=== PATIENT | female | born 1990 | race Caucasian/White ===

== ENCOUNTER 2017-07-27 09:01 | Emergency (ER) | payer OTHER ==
[2017-07-27 10:32] VITALS: BP 114/76
--- NOTE | 2017-07-27 10:40 | UC ---
UC General HPI - HPI Summary HPI Summary: pt is c/o headache, sore throat, runny nose, cough and chest congest for 2 days. No fever or bodyaches. Is with due date of 08/28/17 thus wants to ensure not flu. - History of Current Complaint Chief Complaint: UCGeneralIllness Stated Complaint: JAVIER,ST Time Seen by Provider: 07/27/17 10:29 Hx Obtained From: Patient Hx Last Menstrual Period: 07/16/14 Onset/Duration: Gradual Onset Onset Severity: Mild Current Severity: Mild Pain Intensity: 0 Associated Signs & Symptoms: Positive: Cough, Headache, Other - no vaginal fluid or bleeding. + baby movement.. Negative: Chest Pain, Dysuria, SOB - Allergy/Home Medications Allergies/Adverse Reactions: Allergies Allergy/AdvReac Type Severity Reaction Status Date / Time No Known Allergies Allergy Verified 07/27/17 10:29 Home Medications: Home Medications Acetaminophen TAB* [Tylenol TAB*] 325 mg PO Q4H PRN 07/27/17 [History Confirmed 07/27/17] PMH/Surg Hx/FS Hx/Imm Hx - Additional Past Medical History Additional PMH: Current Previously Healthy: Yes - Surgical History Surgical History: Yes Surgery Procedure, Year, and Place: T&A young child - Family History Known Family History: Positive: None - Social History Occupation: Employed Full-time Alcohol Use: None Substance Use Type: None Smoking Status (MU): Never Smoked Tobacco Type: Cigarettes Amount Used/How Often: couple of cigs per month - Immunization History Most Recent Influenza Vaccination: 2013 Vaccination Up to Date: Yes Review of Systems Constitutional: Negative Skin: Negative Eyes: Negative ENT: Sore Throat, Nasal Discharge Respiratory: Cough Cardiovascular: Negative Gastrointestinal: Negative Genitourinary: Negative Motor: Negative Neurovascular: Negative Musculoskeletal: Negative Neurological: Headache Psychological: Negative Is Patient Immunocompromised?: No All Other Systems Reviewed And Are Negative: Yes Physical Exam Triage Information Reviewed: Yes Appearance: Well-Appearing Vital Signs: Initial Vital Signs Temp 98.3 F 07/27/17 10:26 Pulse 75 07/27/17 10:26 Resp 16 07/27/17 10:26 BP 114/76 07/27/17 10:26 Pulse Ox 98 07/27/17 10:26 Vital Signs Reviewed: Yes Eye Exam: Normal ENT: Positive: Pharynx normal, Nasal congestion, TMs normal. Negative: Sinus tenderness Neck: Positive: Supple, Nontender, Tenderness @ - pertonsilar nodes slightly but only ? sligthly enlarged Respiratory: Positive: Lungs clear, Normal breath sounds, No respiratory distress Cardiovascular: Positive: RRR, No Murmur Abdomen Description: Positive: Nontender, Soft, Other: - Gravid uterus Bowel Sounds: Positive: Present Musculoskeletal: Positive: Other: - scoliosis noted(hx of) Neurological: Positive: Alert Psychological: Positive: Age Appropriate Behavior Skin Exam: Normal Diagnostics - Laboratory Diagnostic Studies Completed/Ordered: rapid strep and flu are both negative Course/Dx - Course Course Of Treatment: non toxic, rapid strep and flu are both negative. exam c/w viral illness thus tx supportive and no antibiotic or antiviral for flu. pt has f/u with ob in 5 days but will go sooner if needed. - Differential Dx - Multi-Symptom Provider Diagnoses: URI, cough Discharge - Discharge Plan Condition: Stable Disposition: HOME Patient Education Materials: Upper Respiratory Infection (ED), Acute Cough (ED) Referrals: Flaco Gamino MD [Medical Doctor] - 5 Days
== END 2017-07-27 11:13 | disposition home or self-care (01) ==
LOC: UCCORT 09:01
DX: O26.893 Other specified pregnancy related conditions, third trimester (principal); Z3A.00 Weeks of gestation of pregnancy not specified; J06.9 Acute upper respiratory infection, unspecified; R05 Cough; O99.333 Smoking (tobacco) complicating pregnancy, third trimester; F17.210 Nicotine dependence, cigarettes, uncomplicated
CPT/HCPCS: 87502; 87651; 99211; G0463

== ENCOUNTER 2018-08-05 07:23 | Emergency (ER) | payer OTHER ==
[2018-08-05 07:35] VITALS: BP 118/84
[2018-08-05] MEDS ORDERED: Ketorolac INJ* 60 MG/2 ML VIAL IM ONE (08:20)
--- NOTE | 2018-08-05 08:21 | UC ---
Back Pain HPI - HPI Summary HPI Summary: SHAMPOOED ROSARIO YESTERDAY. TODAY, WOKE UP WITH PAIN IN LOW BACK THAT SOMETIMES "SHOOTS A SHARP PAIN INTO L LEG" STATES "I'VE HAD THIS A MILLION TIMES BEFORE". NO SELF TX - History of Current Complaint Chief Complaint: UCBackPain Stated Complaint: LOWER BACK PAIN Time Seen by Provider: 08/05/18 08:15 Hx Obtained From: Patient Hx Last Menstrual Period: 07/26/18 Timing: Constant Pain Intensity: 7 Aggravating Factor(s): Movement Associated Signs And Symptoms: Positive: Other - NO SADDLE ANESTHESIA. Negative : Fever, Weakness, Numbness, Abdominal Pain, Flank Pain, Bladder Incontinence, Bowel Incontinence - Risk Factors AAA Risk Factors: Negative Cauda Equina Risk Factors: Negative Epidural Abscess Risk Factors: Negative - Allergies/Home Medications Allergies/Adverse Reactions: Allergies Allergy/AdvReac Type Severity Reaction Status Date / Time No Known Allergies Allergy Verified 08/05/18 07:33 PMH/Surg Hx/FS Hx/Imm Hx - Additional Past Medical History Additional PMH: SCOLIOSIS - Surgical History Surgical History: Yes Surgery Procedure, Year, and Place: T&A young child - Family History Known Family History: Positive: None - Social History Occupation: Employed Full-time Alcohol Use: None Substance Use Type: None Smoking Status (MU): Never Smoked Tobacco Type: Cigarettes Amount Used/How Often: couple of cigs per month - Immunization History Most Recent Influenza Vaccination: 2012 Vaccination Up to Date: Yes Review of Systems All Other Systems Reviewed And Are Negative: Yes Constitutional: Positive: Negative Skin: Positive: Negative Eyes: Positive: Negative ENT: Positive: Negative Respiratory: Positive: Negative Cardiovascular: Positive: Negative Gastrointestinal: Positive: Negative Genitourinary: Positive: Negative Motor: Positive: Negative Neurovascular: Positive: Negative Neurological: Negative: Weakness, Numbness Psychological: Positive: Negative Physical Exam Triage Information Reviewed: Yes Appearance: Well-Appearing Vital Signs: Initial Vital Signs Temp 97.5 F 08/05/18 07:31 Pulse 66 08/05/18 07:31 Resp 18 08/05/18 07:31 BP 118/84 08/05/18 07:31 Pulse Ox 100 08/05/18 07:31 Vital Signs Reviewed: Yes Eyes: Positive: Conjunctiva Clear ENT: Positive: Normal ENT inspection Neck: Positive: Supple, Nontender, No Lymphadenopathy, Other: - C-SPINE NON TENDER Respiratory: Positive: Lungs clear, Normal breath sounds Cardiovascular: Positive: RRR, No Murmur Abdomen Description: Positive: Nontender, No Organomegaly, Soft. Negative: Distended, Guarding, Pulsatile Mass Bowel Sounds: Positive: Present Musculoskeletal: Positive: Other: - BACK: CURVATURE C/W HX SCOLIOSIS. TENDER OVER LUMBAR REGION. ROM INTACT BUT FLEXION WORSENS LOW BACK PAIN. PALPATION L SCIATIC NOTCH WORSENS PAIN. NEGATIVE STRAIGHT LEG RAISES X2. 5/5 STRENGTH, 2+ RELFEXES, SENSATION INTACT X4. NO SADDLE ANESTHESIA. STABLE GAIT. Neurological: Positive: Alert Psychological: Positive: Age Appropriate Behavior Skin Exam: Normal Skin: Negative: Rashes Back Pain Course/Dx - Course Course Of Treatment: PT STATES UNABLE TO TOLERATE MM RELAXORS. WILL TX IM TORADOL HERE AND MEDROL DOSE PACK. - Differential Dx/Diagnosis Differential Diagnosis/HQI/PQRI: Other - NO CONCERN FOR FX, INFECTION, ACUTE ABDOMEN OR CAUDA EQUINA. Provider Diagnosis: Back pain with radiculopathy Discharge - Sign-Out/Discharge Documenting (check all that apply): Patient Departure All imaging exams completed and their final reports reviewed: No Studies - Discharge Plan Condition: Stable Disposition: HOME Prescriptions: methylPREDNISolone [Medrol Dosepak 4 MG*] 0 mg PO .SEE EKATERINA INSTRUCTION #1 tab Patient Education Materials: Lumbar Radiculopathy (ED), Back Pain (ED) Forms: *Work Release Referrals: DANITZA Irwin [Medical Doctor] - 5 Days - Billing Disposition and Condition Condition: STABLE Disposition: Home - Attestation Statements Provider Attestation: Per institutional requirements, I have reviewed the chart, however, I was not consulted specifically or made aware of this patient by the midlevel provider. I did not personally evaluate, interact with , or disposition this patient.
== END 2018-08-05 08:50 | disposition home or self-care (01) ==
LOC: UCCORT 07:23
DX: M54.5 Low back pain (principal); M54.16 Radiculopathy, lumbar region; M41.9 Scoliosis, unspecified
CPT/HCPCS: 96372; 99212; G0463; J1885

== ENCOUNTER 2019-07-14 09:19 | Emergency (ER) | payer OTHER ==
--- OUTSIDE RECORDS SUMMARY | 2019-07-14 09:43 | XMS REPORT | Continuity of Care Document ---
:1990 External Reference #:[id number] Author Name KATIE Sood Address [address] [place] [id number] Care Team Providers Name Role Phone Stewart Alvarado MD - Family Care Team Information Regional Sales Executive Medicine Problems Description No Information Available Social History Type Date Description Comments Sex Unknown Allergies, Adverse Reactions, Alerts Description No Information Available Medications Active Medications SIG Qnty Indications Ordering Provider Date Doxycycline 100mg by mouth 20caps J06.9 Stewart 03/07/2019 Monohydrate once daily x 10 MD Jenny 100mg days Capsules Albuterol Sulfate HFA 2 puffs every 6 1units J06.9 Stewart 03/07/2019 hours MD Jenny 108(90Base) mcg/Act Aerosol Prednisone 40mg daily x 5 10tabs J06.9 Stewart 03/07/2019 20mg Tablets days MD Jenny Immunizations Description No Information Available Vital Signs Date Vital Result Comment 03/07/2019 11:30am Heart Rate 66 /min BP Systolic 98 mmHg BP Diastolic 60 mmHg Respiratory Rate 20 /min Body Temperature 98.2 F O2 % BldC Oximetry 96 % room air Results Description No Information Available Procedures Description No Information Available Medical Devices Description No Information Available Encounters Type Date Location Provider Dx Diagnosis Office Visit 03/07/2019 [facility] KATIE Sood J06.9 Acute upper 11:20a Walk-in at [place] respiratory Drugs infection, unspecified J18.9 Pneumonia, unspecified organism Assessments Date Code Description Provider 03/07/2019 J06.9 Acute upper respiratory infection, unspecified KATIE Sood 03/07/2019 J18.9 Pneumonia, unspecified organism KATIE Sood Plan of Treatment 03/07/2019 - KATIE SoodJ06.9 Acute upper respiratory infection, unspecifiedNew Medication:Doxycycline Monohydrate 100 mg - 100mg by mouth once daily x 10 daysAlbuterol Sulfate HFA 108(90 Base) mcg/Act - 2 puffs every 6 hoursPrednisone 20 mg - 40mg daily x 5 daysFollow up:FOLLOW UP WITH YOUR PRIMARY CARE IN 5 DAYS FOR A RECHECK. GO TO ER FOR CHEST PIAN, TROUBLE BREATHING OR ANY WORSENING.J18.9 Pneumonia, unspecified organism Functional Status Description No Information Available Mental Status Description No Information Available Referrals Description No Information Available
[2019-07-14 10:23] VITALS: BP 110/62
[2019-07-14 10:56] LABS: Influenza A Molecular Negative (Negative); Influenza B Molecular Negative (Negative)
--- NOTE | 2019-07-14 11:18 | UC ---
FLU HPI - HPI Summary HPI Summary: Pt presents with c/o sudden onset of fever, chills, body aches, and nausea that began early this morning. Pt has concern for flu - History of Current Complaint Chief Complaint: UCRespiratory Stated Complaint: BODYACHES SWEATS/CHILLS Time Seen by Provider: 07/14/19 11:13 Hx Obtained From: Patient Hx Last Menstrual Period: 06/16/2019 ?: No Onset/Duration: Sudden Onset, Lasting Hours, Still Present Severity Currently: Moderate Severity Initially: Moderate Pain Intensity: 6 Associated Signs & Symptoms: Positive: Fever, Myalgia, Nasal Congestion Related Hx: Possible Flu/Infectious Exposure - Risk Factors Influenza Risk Factors: Negative - Allergy/Home Medications Allergies/Adverse Reactions: Allergies Allergy/AdvReac Type Severity Reaction Status Date / Time No Known Allergies Allergy Verified 07/14/19 10:17 Home Medications: Home Medications Ibuprofen TAB* [Advil TAB*] 200 mg PO Q6H PRN 07/14/19 [History Confirmed ] PMH/Surg Hx/FS Hx/Imm Hx Previously Healthy: Yes - Surgical History Surgical History: Yes Surgery Procedure, Year, and Place: T&A young child - Family History Known Family History: Positive: Cardiac Disease - Social History Occupation: Employed Full-time Lives: With Family Alcohol Use: None Substance Use Type: None Smoking Status (MU): Heavy Every Day Tobacco Smoker Type: Cigarettes Amount Used/How Often: 1/2 PPD Have You Smoked in the Last Year: Yes - Immunization History Most Recent Influenza Vaccination: 2012 Vaccination Up to Date: Yes Review of Systems All Other Systems Reviewed And Are Negative: Yes Constitutional: Positive: Fever, Chills, Fatigue Skin: Positive: Negative Eyes: Positive: Negative ENT: Positive: Sinus Congestion Respiratory: Positive: Cough Cardiovascular: Positive: Negative Gastrointestinal: Positive: Nausea Genitourinary: Positive: Negative Motor: Positive: Negative Neurovascular: Positive: Negative Musculoskeletal: Positive: Myalgia Neurological: Positive: Headache Is Patient Immunocompromised?: No Physical Exam Triage Information Reviewed: Yes Appearance: Ill-Appearing Vital Signs: Initial Vital Signs Temp 98.7 F 07/14/19 10:19 Pulse 73 07/14/19 10:19 Resp 19 07/14/19 10:19 BP 110/62 07/14/19 10:19 Pulse Ox 96 07/14/19 10:19 Vital Signs Reviewed: Yes Eye Exam: Normal ENT: Positive: Nasal congestion Dental Exam: Normal Neck exam: Normal Respiratory Exam: Normal Respiratory: Positive: Normal breath sounds, No respiratory distress Cardiovascular Exam: Normal Musculoskeletal Exam: Normal Neurological Exam: Normal Psychological Exam: Normal Skin Exam: Normal Flu Course/Dx - Differential Dx/Diagnosis Differential Diagnosis/HQI/PQRI: Influenza, Upper Respiratory Infection Provider Diagnosis: Viral syndrome Discharge ED - Sign-Out/Discharge Documenting (check all that apply): Patient Departure All imaging exams completed and their final reports reviewed: No Studies - Discharge Plan Condition: Stable Disposition: HOME Patient Education Materials: Viral Syndrome (ED), Safe Use of NSAIDs (ED) Forms: *Work Release Referrals: No Primary Care Phys,NOPCP [Primary Care Provider] - - Billing Disposition and Condition Condition: STABLE Disposition: Home
== END 2019-07-14 11:23 | disposition home or self-care (01) ==
LOC: UCCORT 09:19
DX: B34.9 Viral infection, unspecified (principal); R53.83 Other fatigue; R09.81 Nasal congestion; R05 Cough; M79.10 Myalgia, unspecified site; R51 Headache; F17.210 Nicotine dependence, cigarettes, uncomplicated
CPT/HCPCS: 99211; G0463

== ENCOUNTER 2019-09-08 08:26 | Emergency (ER) | payer OTHER ==
--- OUTSIDE RECORDS SUMMARY | 2019-09-08 08:34 | XMS REPORT | Continuity of Care Document ---
:1990 External Reference #:[id number] Author Name KATIE Sood (transmitted by agent of provider Laura Reynaga) Address [address] [address] [place] [phone] Care Team Providers Name Role Phone Stewart Alvarado MD - Family Care Team Information Licensed Professional Counselor [phone] Medicine Problems Description No Information Available Social History Type Date Description Comments Sex Unknown Allergies, Adverse Reactions, Alerts Description No Information Available Medications Active Medications SIG Qnty Indications Ordering Provider Date Amitriptyline HCL qhs Unknown 10mg Tablets Omeprazole 20mg qd Unknown Capsules DR History Medications No Active Medications Unknown 08/20/2019 - 08/20/2019 Doxycycline 100mg by mouth 20caps J06.9 Stewart 03/07/2019 - Monohydrate once daily x 10 MD Jenny 08/20/2019 100mg days Capsules Albuterol Sulfate HFA 2 puffs every 6 1units J06.9 Stewart 03/07/2019 - hours MD Jenny 08/20/2019 108(90Base) mcg/Act Aerosol Prednisone 40mg daily x 5 10tabs J06.9 Stewart 03/07/2019 - 20mg Tablets shanell Alvarado MD 08/20/2019 Immunizations Description No Information Available Vital Signs Date Vital Result Comment 08/20/2019 6:25pm Heart Rate 77 /min BP Systolic Sitting 100 mmHg BP Diastolic Sitting 60 mmHg Respiratory Rate 20 /min Body Temperature 98.2 F O2 % BldC Oximetry 97 % room air 03/07/2019 11:30am Heart Rate 66 /min BP Systolic 98 mmHg BP Diastolic 60 mmHg Respiratory Rate 20 /min Body Temperature 98.2 F O2 % BldC Oximetry 96 % room air Results Test Acquired Date Facility Test Result H/L Range Note Laboratory test 08/20/2019 [facility] Strep NEGATIVE Negative finding Procedures Description No Information Available Medical Devices Description No Information Available Encounters Type Date Location Provider Dx Diagnosis Office Visit 08/20/2019 [facility] KATIE Sood J02.9 Acute pharyngitis, 6:20p Walk-in at [place] unspecified Drugs Office Visit 03/07/2019 [facility] KATIE Sood J06.9 Acute upper 11:20a Walk-in at [place] respiratory Drugs infection, unspecified J18.9 Pneumonia, unspecified organism Assessments Date Code Description Provider 08/20/2019 J02.9 Acute pharyngitis, unspecified KATIE Sood 03/07/2019 J06.9 Acute upper respiratory infection, unspecified KATIE Sood 03/07/2019 J18.9 Pneumonia, unspecified organism KATIE Sood Plan of Treatment 08/20/2019 - KATIE SoodJ02.9 Acute pharyngitis, unspecifiedComments: FOLLOW UP WITH PRIMARY CARE IN 7-10 DAYS OR SOONER IOF WORSE.AllNew Medication: No Active Medications - Functional Status Description No Information Available Mental Status Description No Information Available Referrals Description No Information Available
--- OUTSIDE RECORDS SUMMARY | 2019-09-08 08:34 | XMS REPORT | Continuity of Care Document ---
:1990 External Reference #:[id number] Author Name Bharti Bowens PA (transmitted by agent of provider Lana Vivas) Address [facility] [address] [place] [id number] Care Team Providers Name Role Phone Bharti Bowens PA - Medical Care Team Information Senior Quality Assurance Analyst [phone] Problems Active Problems Provider Date Thoracogenic scoliosis Julia Roper [facility] Onset: 05/16/2012 Herpes simplex Julia Roper [facility] Onset: 05/16/2012 Social History Type Date Description Comments Sex Unknown Tobacco Use Start: Unknown Patient is a current cigarette smoker, Socially smokes some days ETOH Use Rarely consumes alcohol Tobacco Use Start: Unknown Heavy tobacco smoker (more than 10 cigarettes/day) Smoking Status Reviewed: 08/15/19 Heavy tobacco smoker (more than 10 cigarettes/day) Allergies, Adverse Reactions, Alerts Description No Known Drug Allergies Medications Active Medications SIG Qnty Indications Ordering Date Provider Amitriptyline HCL 1 tablet 1 hours 30tabs R51 Clune, 08/04/2019 10mg prior to bedtime Jenniferleigh, Tablets ROLL UP OPERATOR Magnesium Oxide 1 by mouth every 90tabs R51 Clune, 08/04/2019 400mg day *for Jenniferleigh, Tablets headaches ROLL UP OPERATOR Vitamin B-2 1 by mouth every 100tabs R51 Clune, 08/04/2019 100mg day Jenniferleigh, Tablets ROLL UP OPERATOR Butalbital-Acetaminop one tablet every 45tabs R51 Clune, 08/04/2019 hen 4-6 hours as Jenniferleigh, 50-325mg Tablets needed for ROLL UP OPERATOR headache pain Omeprazole 1 by mouth every 30caps R10.13 Bartoloune, 08/04/2019 20mg day [address] Multivitamin one po daily Unknown Norgestim-Eth Estrad Take One Tablet Unknown Triphasic By Mouth Every Day AT The Same 0.18/0.215/0.25 mg-25 Time mcg Tablets Medications Administered in Office Medication SIG Qnty Indications Ordering Provider Date Maritza Quezada, 06/30/2016 Injection ROLL UP OPERATOR-C Immunizations CPT Code Status Date Vaccine Lot # 40755 Given 06/30/2016 Influenza Virus Vaccine Split Virus Use For [id number] Individual 3Yr Older 65440 Given 07/11/2013 Varicella (Chicken Pox) Vaccine 06992 Given 05/20/2012 Meningococcal Conjugate Vaccine Serogroups For Intramuscular Use 30617 Given 04/18/2012 flu vaccination 40843 Given 09/16/2007 Gardasil 02031 Given 05/15/2007 flu vaccination 88342 Given 05/15/2007 Gardasil 26629 Given 03/06/2007 Tdap injection 14273 Given 03/06/2007 Poliovirus Vaccine Subcutaneous Or Intramuscular 71095 Given 03/06/2007 Gardasil 40772 Given 02/26/2003 Hepatitis B Vaccine Pediatric/Adolescent 31539 Given 03/29/1995 Poliovirus Vaccine Subcutaneous Or Intramuscular 50520 Given 06/10/1994 Hepatitis B Vaccine Pediatric/Adolescent 58596 Given 04/10/1994 MMR Vaccine, Live, For Subcutaneous Use 83545 Given 05/31/1993 Hepatitis B Vaccine Pediatric/Adolescent 01963 Given 04/07/1993 Hepatitis B Vaccine Pediatric/Adolescent U-Polio Given 09/18/1991 Polio,Unspecified 27754 Given 09/18/1991 DTaP Vaccine Younger Than 7 36254 Given 06/17/1991 MMR Vaccine, Live, For Subcutaneous Use 38478 Given 1990 DTaP Vaccine Younger Than 7 U-Polio Given 1990 Polio,Unspecified 65571 Given 1990 DTaP Vaccine Younger Than 7 U-Polio Given 1990 Polio,Unspecified 20960 Given 1990 DTaP Vaccine Younger Than 7 Vital Signs Date Vital Result Comment 08/15/2019 3:04pm BP Systolic 123 mmHg BP Diastolic 74 mmHg Body Temperature 98.0 F Heart Rate 79 /min Respiratory Rate 17 /min Height 70 inches 5'10" Weight 182.00 lb BMI (Body Mass Index) 26.1 kg/m2 BSA (Body Surface Area) 2.01 m2 Bryan body weight in kilograms 68 kg O2 % BldC Oximetry 95 % 08/04/2019 2:28pm BP Systolic 115 mmHg BP Diastolic 80 mmHg Body Temperature 98.3 F Heart Rate 82 /min Respiratory Rate 18 /min Height 70 inches 5'10" Weight 182.00 lb BMI (Body Mass Index) 26.1 kg/m2 BSA (Body Surface Area) 2.01 m2 Bryan body weight in kilograms 68 kg O2 % BldC Oximetry 97 % Ra Results Test Acquired Date Facility Test Result H/L Range Note CBC 08/04/[address] [facility] [address] White Blood 19.2 K/uL High 3.1-10.7 1 W/Automated [address] [place] [address] [phone] Red Blood Count 4.48 M/uL Normal 3.90-5.40 Hemoglobin 13.2 gm/dL Normal 11.6-15.8 Hematocrit 41.1 % Normal 36.0-46.1 Mean Cell Volume 91.7 fl Normal 80.9-99.0 Mean Corpuscular HGB 29.5 pg Normal 25.9-32.7 Mean Corpuscular HGB Conc 32.1 g/dL Normal 30.8-34.3 Platelet Count 258 K/uL Normal 155-360 Red Cell Distri Width SD 44.7 fl Normal 36-47 Red Cell Distri Width %CV 13.2 % Normal 11.7-14.4 Mean Platelet Volume 11.9 fl Normal 8.9-12.4 Neut% 82.4 % High 40.4-72.8 Lymph % 12.1 % Low 20.0-42.0 [place] % 3.5 % Low 4.3-13.2 Eo% 1.0 % Normal 0.0-6.6 Bas% 0.3 % Normal 0.0-1.1 Immature Grans 0.7 % Normal 0.0-5.0 NRBC % 0.0 /100WBC < 10/ 100 WBC Neut# 15.79 K/uL High 1.8-7.0 Lymph # 2.33 K/uL Normal 1.0-4.0 [place] # 0.67 K/uL Normal 0.3-0.9 Eos # 0.19 K/uL Normal 0.0-0.5 Baso # 0.06 K/uL Normal 0.0-0.1 Immature Grans Absolute 0.14 K/uL NRBC # 0.00 K/uL Comprehensive 08/04/[address] [facility] [address] Glucose 100 mg/dL Normal 74- 106 Metabolic Panel [address] [place] [address] [phone] BUN 18 mg/dL Normal 7-18 Creatinine 0.8 mg/dL Normal 0.6-1.3 Glom Filtration Rate, Estimate >60 mL/min >60 If >60 mL/min >60 2 BUN/Creat 22.5 ratio Sodium 136 mmol/L Normal 136-145 Potassium 3.8 mmol/L Normal 3.5-5.1 Chloride 105 mmol/L Normal 98-107 Carbon Dioxide 26 mmol/L Normal 21-32 Anion Gap 5 mEq/L Low 8-16 Calcium 8.7 mg/dL Normal 8.5-10.1 Total Protein 7.6 g/dL Normal 6.4-8.2 Albumin 3.7 g/dL Normal 3.4-5.0 Globulin 3.9 g/dL Normal 1.9-4.3 Alb/Glob 0.9 ratio Bilirubin,Total 0.2 mg/dL Normal 0.2-1.0 3 Sgot/Ast 12 U/L Low 15-37 4 SGPT/Alt 18 U/L Normal 12-78 Alkaline Phosphatase 71 U/L Normal 45-117 Slide Review 08/04/[address] [facility] [address] Slide Review (SEE NOTE) 5 [address] [place] [address] [phone] 1 G47.62 2 Note: Persistent reduction for 3 months or more in an eGFR <60 mL/min/1.73 m2 defines CKD. Patients with eGFR values >/=60 mL/min/1.73 m2 may also have CKD if evidence of persistent proteinuria is present. The original MDRD equation for estimated GFR is not valid for patients less than 18 years of age. Additional information may be found at www.kdoqi.org. 3 Please Note: Patients undergoing treatment with eltrombopag may have falsely elevated results with this assay method. 4 Values below the stated reference ranges of AST and ALT can be seen in normal populations. Clinical correlation is suggested. 5 Instrument flagged sample for slide review. Less than 10% Bands seen, no other immature WBC's seen. RBC morphology essentially normal. Platelet estimate = NORMAL Procedures Description No Information Available Medical Devices Description No Information Available Encounters Type Date Location Provider Dx Diagnosis Office Visit 08/15/2019 3:10p [facility] Bharti Bowens PA R[address] R53.83 Other fatigue Z71.6 Tobacco abuse counseling Office Visit 08/04/2019 2:15p [facility] Colt Kramer, R[address] ROLL UP OPERATOR G47.62 Sleep related leg cramps R10.13 Epigastric pain Assessments Date Code Description Provider 08/15/2019 R51 Headache Bharti Bowens PA 08/15/2019 R53.83 Other fatigue Bharti Bowens PA 08/04/2019 R51 Headache Colt Kramer FNP 08/04/2019 G47.62 Sleep related leg cramps Colt Kramer FNP 08/04/2019 R10.13 Epigastric pain Colt Kramer FNP Plan of Treatment Future Appointment(s):11/18/2019 3:30 pm - Bharti Bowens PA at [facility] RD08/15/2019 - Bharti Bowens PAR51 HeadacheComments:Headaches have improved with daily supplements and Amitriptyline. Headache can be triggered by a variety of factors. These include, fatigue, stress, dehydration and caffeine or caffeine withdrawal. Tryto stay well hydrated, well rested and reduce your stress. Use the medication as directed. Try not to use rescue analgesics too frequently. This can lead to rebound headache. Call me if headaches continue to ocur more than once every 1-2 weeks.Follow up:3 [id number] Other fatigueComments:Repeat labs. The WBC was elevated last month. I am also rechecking your TSH, Will follow up pending results.Z71.6 Tobacco abuse counseling Functional Status Functional Condition Comment Date Status Independent with all ADL's Active Independent with all IADL's Active Mental Status Description No Information Available Referrals Description No Information Available
--- OUTSIDE RECORDS SUMMARY | 2019-09-08 08:34 | XMS REPORT | Continuity of Care Document ---
:1990 External Reference #:[id number] Author Name Colt Kramer FNP Address [address] [place] [phone] Care Team Providers Name Role Phone Bharti Bowens PA - Medical Care Team Information Superintendent Division [phone] Problems Active Problems Provider [facility]: [facility] Herpes simplex Julia Roper [facility] Onset: 05/16/2012 Social History Type Date Description Comments Sex Unknown Tobacco Use Start: Unknown Patient is a current cigarette smoker, Socially smokes some days ETOH Use Rarely consumes alcohol Tobacco Use Start: Unknown Heavy tobacco smoker (more than 10 cigarettes/day) Smoking Status Reviewed: 08/04/19 Heavy tobacco smoker (more than 10 cigarettes/day) Allergies, Adverse Reactions, Alerts Description No Known Drug Allergies Medications Active Medications SIG Qnty Indications Ordering Date Provider Amitriptyline HCL 1 tablet 1 hours 30tabs R51 Clune, 08/04/2019 10mg prior to bedtime Jenniferleigh, Tablets COMPRESSOR OPERATOR PORTABLE Magnesium Oxide 1 by mouth every 90tabs R51 Clune, 08/04/2019 400mg day *for Jenniferleigh, Tablets headaches COMPRESSOR OPERATOR PORTABLE Vitamin B-2 1 by mouth every 100tabs R51 Clune, 08/04/2019 100mg day Jenniferleigh, Tablets COMPRESSOR OPERATOR PORTABLE Butalbital-Acetaminop one tablet every 45tabs R51 Clune, 08/04/2019 hen 4-6 hours as Jenniferleigh, 50-325mg Tablets needed for COMPRESSOR OPERATOR PORTABLE headache pain Omeprazole 1 by mouth every 30caps R10.13 Clune, 08/04/2019 20mg day [place], Capsules DR HENDERSON Multivitamin one po daily Unknown Norgestim-Eth Estrad Take One Tablet Unknown Triphasic By Mouth Every Day AT The Same 0.18/0.215/0.25 mg-25 Time mcg Tablets Medications Administered in Office Medication SIG Qnty Indications Ordering Provider Date Maritza Quezada, 06/30/2016 Injection COMPRESSOR OPERATOR PORTABLE-C Immunizations CPT Code Status Date Vaccine Lot # 54872 Given 06/30/2016 Influenza Virus Vaccine Split Virus Use For [id number] Individual 3Yr Older 33428 Given 07/11/2013 Varicella (Chicken Pox) Vaccine 81080 Given 05/20/2012 Meningococcal Conjugate Vaccine Serogroups For Intramuscular Use 92672 Given 04/18/2012 flu vaccination 45665 Given 09/16/2007 Gardasil 47822 Given 05/15/2007 flu vaccination 59062 Given 05/15/2007 Gardasil 38170 Given 03/06/2007 Tdap injection 69555 Given 03/06/2007 Poliovirus Vaccine Subcutaneous Or Intramuscular 51423 Given 03/06/2007 Gardasil 24772 Given 02/26/2003 Hepatitis B Vaccine Pediatric/Adolescent 88872 Given 03/29/1995 Poliovirus Vaccine Subcutaneous Or Intramuscular 34646 Given 06/10/1994 Hepatitis B Vaccine Pediatric/Adolescent 16974 Given 04/10/1994 MMR Vaccine, Live, For Subcutaneous Use 67460 Given 05/31/1993 Hepatitis B Vaccine Pediatric/Adolescent 78045 Given 04/07/1993 Hepatitis B Vaccine Pediatric/Adolescent U-Polio Given 09/18/1991 Polio,Unspecified 15943 Given 09/18/1991 DTaP Vaccine Younger Than 7 86183 Given 06/17/1991 MMR Vaccine, Live, For Subcutaneous Use 63024 Given 1990 DTaP Vaccine Younger Than 7 U-Polio Given 1990 Polio,Unspecified 90295 Given 1990 DTaP Vaccine Younger Than 7 U-Polio Given 1990 Polio,Unspecified 58434 Given 1990 DTaP Vaccine Younger Than 7 Vital Signs Date Vital Result Comment 08/04/2019 2:28pm BP Systolic 115 mmHg BP Diastolic 80 mmHg Body Temperature 98.3 F Heart Rate 82 /min Respiratory Rate 18 /min Height 70 inches 5'10" Weight 182.00 lb BMI (Body Mass Index) 26.1 kg/m2 BSA (Body Surface Area) 2.01 m2 [place] body weight in kilograms 68 kg O2 % BldC Oximetry 97 % Ra 08/06/2018 9:54am BP Systolic Sitting Right Arm 118 mmHg BP Diastolic Sitting Right Arm 72 mmHg Body Temperature 97.4 F Heart Rate 91 /min Weight 183.06 lb O2 % BldC Oximetry 94 % Results Test Acquired Date Facility Test Result H/L Range Note CBC 08/04/[address] [facility] [address] White Blood 19.2 K/uL High 3.1-10.7 1 W/Automated [address] Count Diff [place], [place] [id number] [phone] Red Blood Count 4.48 M/uL Normal 3.90-5.40 [...] 40.4-72.8 Lymph % 12.1 % Low 20.0-42.0 [place]anner % 3.5 % Low 4.3-13.2 Eo% 1.0 % Normal 0.0-6.6 Bas% 0.3 % Normal 0.0-1.1 Immature Grans 0.7 % Normal 0.0-5.0 NRBC % 0.0 /100WBC < 10/ 100 WBC Neut# 15.79 K/uL High 1.8-7.0 Lymph # 2.33 K/uL Normal 1.0-4.0 [place]anner # 0.67 K/uL Normal 0.3-0.9 Eos # 0.19 K/uL Normal 0.0-0.5 Baso # 0.06 K/uL Normal 0.0-0.1 Immature Grans Absolute 0.14 K/uL NRBC # 0.00 K/uL Comprehensive 08/04/[address] Glucose 100 mg/dL Normal 74- 106 Metabolic Panel [address] [place] [address] [phone] BUN 18 mg/dL Normal 7-18 Creatinine 0.8 [...] 71 U/L Normal 45-117 Slide Review 08/04/[address] Slide Review (SEE NOTE) 5 [address] [place] [address] [phone] 1 G47.62 2 Note: Persistent reduction for [...] Date Location Provider Dx Diagnosis Office Visit 08/04/2019 2:15p [facility] Williams, R[address] [place] Gregory G47.62 Sleep related leg cramps R10.13 Epigastric pain Assessments Date Code Description Provider 08/04/2019 R51 Headache Colt KramerSANTIAGO 08/04/2019 G47.62 Sleep related leg cramps Colt KramerSANTIAGO 08/04/2019 R10.13 Epigastric pain Natalie KramermairaroloKRISTIEP Plan of Treatment Future Appointment(s):08/15/2019 3:10 pm - Bharti Bowens [facility] at [facility]08/04/2019 - Colt KramerKRISTIEPR51 HeadacheNew Medication :Amitriptyline HCL 10 mg - 1 tablet 1 hours prior to bedtimeMagnesium Oxide 400 mg - 1 by mouth every day *for headachesVitamin B-2 100 mg - 1 by mouth every dayButalbital-Acetaminophen 50-325 mg - one tablet every 4-6 hours as needed for headache painComments:As we start treatment, I would like you to start keeping a headache diary - tracking when you get a headache, how bad it is ( scale of 1-10) and what you take for it. I encourage you to use Magnesium 400 mg and Vitamin B2 (folate) 100 mg daily - these are available over the counter. Other things you can do to help your headaches are to exercise daily (20 min a day of dedicated walking is fine), keepyour caffeine intake consistent, as well as to stay hydrated. Keep a good sleep routine, making sure to get 8 hours of sleep at night with consistent bedtime and wake times.Follow up:10-14 days f/u headache and leg mcknkhI55.62 Sleep related leg kopxkjU29.13 Epigastric painNew Medication:Omeprazole 20 mg - 1 by mouth every dayComments: Discussed GERD diet: avoid hot spicy foods, tomato based products, acidic foods such as orange juiceas well as spearmint and peppermint (this includes chewing gum). Avoid tight fitting clothing and belts, as these delay emptying of the stomach. Don't lay down for 2 hours after eating, and try to eat smaller meals , adding in small snacks between. Raising the head of the bed by several inches may also help night time symptoms. Functional Status Functional Condition Comment Date Status Independent with all ADL's Active Independent with all IADL's Active Mental Status Description No Information Available Referrals Description No Information Available
--- OUTSIDE RECORDS SUMMARY | 2019-09-08 08:34 | XMS REPORT | Continuity of Care Document ---
:1990 External Reference #:[id number] Author Name Bharti Bowens PA (transmitted by agent of provider Paula Peraza) Address [facility] [address] [address] Care Team Providers Name Role Phone Bharti Bowens PA - Medical Care Team Information [employer] [phone] Problems Active Problems Provider Date Thoracogenic scoliosis Julia Roper [facility] Onset: 05/16/2012 Herpes simplex Julia Roper [facility] Onset: 05/16/2012 Social History Type Date Description [...] 08/04/2019 10mg prior to bedtime Jenniferleigh, Tablets [employer] Magnesium Oxide 1 by mouth every 90tabs R51 Clune, 08/04/2019 400mg day *for Jenniferleigh, Tablets headaches [employer] Vitamin B-2 1 by mouth every 100tabs R51 Clune, 08/04/2019 100mg day Jenniferleigh, Tablets [employer] Butalbital-Acetaminop one tablet every 45tabs R51 Clune, 08/04/2019 hen 4-6 hours as Jenniferleigh, 50-325mg Tablets needed for [employer] headache pain Omeprazole 1 by mouth every 30caps R10.13 [place], 08/04/2019 20mg day [address] Multivitamin one po daily Unknown Norgestim-Eth Estrad Take One Tablet Unknown Triphasic By Mouth Every Day AT The Same 0.18/0.215/0.25 mg-25 Time mcg Tablets Medications Administered in Office Medication SIG Qnty Indications Ordering Provider Date Maritza Quezada, 06/30/2016 Injection [employer]-C Immunizations CPT Code Status Date Vaccine Lot # 29118 Given 06/30/2016 Influenza Virus Vaccine Split Virus Use For [id number] Individual 3Yr Older 29431 Given 07/11/2013 Varicella (Chicken Pox) Vaccine 40668 Given 05/20/2012 Meningococcal Conjugate Vaccine Serogroups For Intramuscular Use 49361 Given 04/18/2012 flu vaccination 57247 Given 09/16/2007 Gardasil 40346 Given 05/15/2007 flu vaccination 63771 Given 05/15/2007 Gardasil 30033 Given 03/06/2007 Tdap injection 67117 Given 03/06/2007 Poliovirus Vaccine Subcutaneous Or Intramuscular 36383 Given 03/06/2007 Gardasil 94706 Given 02/26/2003 Hepatitis B Vaccine Pediatric/Adolescent 87394 Given 03/29/1995 Poliovirus Vaccine Subcutaneous Or Intramuscular 81766 Given 06/10/1994 Hepatitis B Vaccine Pediatric/Adolescent 72611 Given 04/10/1994 MMR Vaccine, Live, For Subcutaneous Use 86817 Given 05/31/1993 Hepatitis B Vaccine Pediatric/Adolescent 57572 Given 04/07/1993 Hepatitis B Vaccine Pediatric/Adolescent U-Polio Given 09/18/1991 Polio,Unspecified 53302 Given 09/18/1991 DTaP Vaccine Younger Than 7 57426 Given 06/17/1991 MMR Vaccine, Live, For Subcutaneous Use 00042 Given 1990 DTaP Vaccine Younger Than 7 U-Polio Given 1990 Polio,Unspecified 62267 Given 1990 DTaP Vaccine Younger Than 7 U-Polio Given 1990 Polio,Unspecified 23937 Given 1990 DTaP Vaccine Younger Than 7 Vital Signs Date Vital Result Comment 08/15/2019 3:04pm BP Systolic 123 mmHg BP Diastolic 74 mmHg Body Temperature 98.0 F Heart Rate 79 /min Respiratory Rate 17 /min Height 70 inches 5'10" Weight 182.00 lb BMI (Body Mass Index) 26.1 kg/m2 BSA (Body Surface Area) 2.01 m2 [place] body weight in kilograms 68 kg O2 % BldC Oximetry 95 % 08/04/2019 2:28pm BP Systolic 115 mmHg BP Diastolic 80 mmHg Body Temperature 98.3 F Heart Rate 82 /min Respiratory Rate 18 /min Height 70 inches 5'10" Weight 182.00 lb BMI (Body Mass Index) 26.1 kg/m2 BSA (Body Surface Area) 2.01 m2 [place] body weight in kilograms 68 kg O2 % BldC Oximetry 97 % Ra Results Test Acquired Date Facility Test Result H/L Range Note CBC 08/15/[address] White Blood 12.1 K/uL High 3.1-10.7 1 W/Automated [address] [place] [address] [phone] Red Blood Count 4.62 M/uL Normal 3.90-5.40 Hemoglobin 13.7 gm/dL Normal 11.6-15.8 Hematocrit 42.1 % Normal 36.0-46.1 Mean Cell Volume 91.1 fl Normal 80.9-99.0 Mean Corpuscular HGB 29.7 pg Normal 25.9-32.7 Mean Corpuscular HGB Conc 32.5 g/dL Normal 30.8-34.3 Platelet Count 245 K/uL Normal 155-360 Red Cell Distri Width SD 44.6 fl Normal 36-47 Red Cell Distri Width %CV 13.2 % Normal 11.7-14.4 Mean Platelet Volume 11.5 fl Normal 8.9-12.4 Neut% 72.2 % Normal 40.4-72.8 Lymph % 20.8 % Normal 20.0-42.0 [place] % 4.9 % Normal 4.3-13.2 Eo% 1.2 % Normal 0.0-6.6 Bas% 0.3 % Normal 0.0-1.1 Immature Grans 0.6 % Normal 0.0-5.0 NRBC % 0.0 /100WBC < 10/ 100 WBC Neut# 8.69 K/uL High 1.8-7.0 Lymph # 2.51 K/uL Normal 1.0-4.0 [place] # 0.59 K/uL Normal 0.3-0.9 Eos # 0.15 K/uL Normal 0.0-0.5 Baso # 0.04 K/uL Normal 0.0-0.1 Immature Grans Absolute 0.07 K/uL NRBC # 0.00 K/uL Comprehensive 08/15/[address] Glucose 91 mg/dL Normal 74-106 Metabolic Panel [address] [place] [address] [phone] BUN 22 mg/dL High 7-18 Creatinine 1.0 mg/dL Normal 0.6-1.3 Glom Filtration Rate, Estimate >60 mL/min >60 If >60 mL/min >60 2 BUN/Creat 22.0 ratio Sodium 138 mmol/L Normal 136-145 Potassium 4.0 mmol/L Normal 3.5-5.1 Chloride 108 mmol/L High 98-107 Carbon Dioxide 28 mmol/L Normal 21-32 Anion Gap 2 mEq/L Low 8-16 Calcium 8.8 mg/dL Normal 8.5-10.1 Total Protein 7.3 g/dL Normal 6.4-8.2 Albumin 3.6 g/dL Normal 3.4-5.0 Globulin 3.7 g/dL Normal 1.9-4.3 Alb/Glob 1.0 ratio Bilirubin,Total 0.1 mg/dL Low 0.2-1.0 3 Sgot/Ast 12 U/L Low 15-37 4 SGPT/Alt 20 U/L Normal 12-78 Alkaline Phosphatase 67 U/L Normal 45-117 Reflex add FT3? Y Reflex add FT4? Y TSH Reflex 08/15/[address] Thyroid Stim 0.92 uIU/mL Normal 0.30-4.20 FT4 And/Or [address] Hormone FT3 [place] [address] [phone] Reflex add FT3? Y Reflex add FT4? Y CBC W/Automated 08/04/[address] White Blood 19.2 K/uL High 3.1-10.7 5 Diff [address] [place] [address] [phone] Red Blood Count 4.48 M/uL Normal 3.90-5.40 [...] 40.4-72.8 Lymph % 12.1 % Low 20.0-42.0 [place] % 3.5 % Low 4.3-13.2 Eo% 1.0 % Normal 0.0-6.6 Bas% 0.3 % Normal 0.0-1.1 Immature Grans 0.7 % Normal 0.0-5.0 NRBC % 0.0 /100WBC < 10/ 100 WBC Neut# 15.79 K/uL High 1.8-7.0 Lymph # 2.33 K/uL Normal 1.0-4.0 [place] # 0.67 K/uL Normal 0.3-0.9 Eos # 0.19 K/uL Normal 0.0-0.5 Baso # 0.06 K/uL Normal 0.0-0.1 Immature Grans Absolute 0.14 K/uL NRBC # 0.00 K/uL Comprehensive 08/04/[address] [facility] [address] Glucose 100 mg/dL Normal 74- 106 Metabolic Panel [address] [place] [address] [phone] BUN 18 mg/dL Normal 7-18 Creatinine 0.8 mg/dL Normal 0.6-1.3 Glom Filtration Rate, Estimate >60 mL/min >60 If >60 mL/min >60 6 BUN/Creat 22.5 ratio Sodium 136 mmol/L Normal 136-145 Potassium 3.8 mmol/L Normal 3.5-5.1 Chloride 105 mmol/L Normal 98-107 Carbon Dioxide 26 mmol/L Normal 21-32 Anion Gap 5 mEq/L Low 8-16 Calcium 8.7 mg/dL Normal 8.5-10.1 Total Protein 7.6 g/dL Normal 6.4-8.2 Albumin 3.7 g/dL Normal 3.4-5.0 Globulin 3.9 g/dL Normal 1.9-4.3 Alb/Glob 0.9 ratio Bilirubin,Total 0.2 mg/dL Normal 0.2-1.0 7 Sgot/Ast 12 U/L Low 15-37 8 SGPT/Alt 18 U/L Normal 12-78 Alkaline Phosphatase 71 U/L Normal 45-117 Slide Review 08/04/2019 [facility] Walk-in Appointment Scheduler Ave Slide Review (SEE NOTE) 9 [address] [id number] [phone] 1 R51 2 Note: Persistent reduction for 3 months [...] normal populations. Clinical correlation is suggested. 5 G47.62 6 Note: Persistent reduction for 3 months or more in an eGFR <60 mL/min/1.73 m2 defines CKD. Patients with eGFR values >/=60 mL/min/1.73 m2 may also have CKD if evidence of persistent proteinuria is present. The original MDRD equation for estimated GFR is not valid for patients less than 18 years of age. Additional information may be found at www.kdoqi.org. 7 Please Note: Patients undergoing treatment with eltrombopag may have falsely elevated results with this assay method. 8 Values below the stated reference ranges of AST and ALT can be seen in normal populations. Clinical correlation is suggested. 9 Instrument flagged sample for slide review. Less than 10% Bands seen, no other immature WBC's seen. RBC morphology essentially normal. Platelet estimate = NORMAL Procedures Description No Information Available Medical Devices Description No Information Available Encounters Type Date Location Provider Dx Diagnosis Office Visit 08/15/2019 3:10p Family Medicine Bharti Mora, PA R[address] R53.83 Other fatigue F17.210 Nicotine dependence, cigarettes, uncomplicated Z71.6 Tobacco abuse counseling Office Visit 08/04/2019 2:15p [facility] Colt Kramer, R[address] [employer] G47.62 Sleep related leg cramps R10.13 Epigastric pain Assessments Date Code Description Provider 08/15/2019 R51 Headache Bharti Bowens PA 08/15/2019 R53.83 Other fatigue Bharti Bowens PA 08/15/2019 F17.210 Nicotine dependence, cigarettes, Bharti Bowens PA uncomplicated 08/15/2019 Z71.6 Tobacco abuse counseling Bharti Bowens PA 08/04/2019 R51 Headache Colt Kramer FNP 08/04/2019 G47.62 Sleep related leg cramps Colt Kramer FNP 08/04/2019 R10.13 Epigastric pain Colt Kramer FNP Plan of Treatment Future Appointment(s):11/18/2019 3:30 pm - Bharti [facility] at [facility]08/15/2019 - Bharti Bowens PAR51 HeadacheComments:Headaches have improved [...] more than once every 1-2 weeks.Follow up:3 zvnakiC23.83 Other fatigueComments:Repeat labs. The WBC was elevated last month. I am also rechecking your TSH, Will follow up pending results.F17.210 Nicotine dependence, cigarettes, vljqowviedxouC51.6 Tobacco abuse counselingComments:[email or web address] [address] [place] [facility] [place] [address] Quit now You can use patches if you want tohelp w cravings. You need to have a list of cigarettes and why you are smoking them, then make a list of replacement activity for each cigarette you eliminate. Functional Status Functional Condition Comment Date Status Independent with all ADL's Active Independent with all IADL's Active Mental Status Description No Information Available Referrals Description No Information Available
[2019-09-08 08:43] VITALS: BP 120/68
--- NOTE | 2019-09-08 09:21 | UC ---
Back Pain HPI - HPI Summary HPI Summary: Pt presents with c/o of sudden onset of low back pain. Pt sates she woke from sleep with throbbing low back pain that radiates to upper buttocks. Pt reports hx of sciatica during past , denies loss of bowel or bladder, denies weakness or loss of control of lower extremities. Denies hx of disc problems. - History of Current Complaint Chief Complaint: UCBackPain Stated Complaint: LOW BACK PAIN Time Seen by Provider: 09/08/19 09:17 Hx Obtained From: Patient Hx Last Menstrual Period: 08/09/19 ?: No Onset/Duration: Sudden Onset, Lasting Days, Still Present Timing: Constant Severity Initially: Moderate Severity Currently: Mild Pain Intensity: 7 Back Pain: Is Discrete @ - low back, Radiates To - to upper buttocks Character: Dull, Aching, Spasmodic Aggravating Factor(s): Movement Alleviating Factor(s): Rest, Position Associated Signs And Symptoms: Positive: Negative Related History: Similar Episode Dx As - sciatica - Risk Factors AAA Risk Factors: Negative TAD Risk Factors: Negative Cauda Equina Risk Factors: Negative Epidural Abscess Risk Factors: Negative - Allergies/Home Medications Allergies/Adverse Reactions: Allergies Allergy/AdvReac Type Severity Reaction Status Date / Time No Known Allergies Allergy Verified 09/08/19 08:35 Home Medications: Home Medications Acetaminophen TAB* [Tylenol TAB*] 650 mg PO Q4H PRN 07/27/17 [History Confirmed 09/08/19] Ibuprofen TAB* [Advil TAB*] 400 mg PO Q6H PRN 07/14/19 [History Confirmed ] Cyclobenzaprine TAB* [Flexeril 10 MG TAB*] 10 mg PO Q8H PRN #9 tab 09/08/19 [Rx] predniSONE 20 mg TAB [Deltasone 20 MG TAB*] 20 mg PO DAILY #5 tab 09/08/19 [Rx] PMH/Surg Hx/FS Hx/Imm Hx Previously Healthy: Yes - Surgical History Surgical History: Yes Surgery Procedure, Year, and Place: T&A young child - Family History Known Family History: Positive: Cardiac Disease - Social History Occupation: Employed Full-time Lives: With Family Alcohol Use: Occasionally Substance Use Type: None Smoking Status (MU): Heavy Every Day Tobacco Smoker Type: Cigarettes Amount Used/How Often: 1/2 PPD Have You Smoked in the Last Year: Yes Household Exposure Type: Cigarettes - Immunization History Most Recent Influenza Vaccination: 2012 Vaccination Up to Date: Yes Review of Systems All Other Systems Reviewed And Are Negative: Yes Constitutional: Positive: Negative Skin: Positive: Negative Eyes: Positive: Negative ENT: Positive: Negative Respiratory: Positive: Negative Cardiovascular: Positive: Negative Gastrointestinal: Positive: Negative Genitourinary: Positive: Negative Motor: Positive: Negative Neurovascular: Positive: Negative Musculoskeletal: Positive: Myalgia Neurological/Mental Status: Positive: Negative Psychological: Positive: Negative Is Patient Immunocompromised?: No Physical Exam Triage Information Reviewed: Yes Appearance: Well-Appearing Vital Signs: Initial Vital Signs Temp 98 F 09/08/19 08:36 Pulse 75 09/08/19 08:36 Resp 16 09/08/19 08:36 BP 120/68 09/08/19 08:36 Pulse Ox 99 09/08/19 08:36 Vital Signs Reviewed: Yes Eye Exam: Normal ENT Exam: Normal Dental Exam: Normal Neck exam: Normal Respiratory Exam: Normal Cardiovascular Exam: Normal Musculoskeletal Exam: Normal Musculoskeletal: Positive: Strength Intact, ROM Intact, No Edema Neurological Exam: Normal Psychological Exam: Normal Skin Exam: Normal Back Pain Course/Dx - Differential Dx/Diagnosis Differential Diagnosis/HQI/PQRI: Herniated Disc, Strain, Sprain Provider Diagnosis: Low back pain Discharge ED - Sign-Out/Discharge Documenting (check all that apply): Patient Departure All imaging exams completed and their final reports reviewed: No Studies - Discharge Plan Condition: Stable Disposition: HOME Prescriptions: Cyclobenzaprine TAB* [Flexeril 10 MG TAB*] 10 mg PO Q8H PRN #9 tab PRN Reason: Pain - Mild predniSONE 20 mg TAB [Deltasone 20 MG TAB*] 20 mg PO DAILY #5 tab Patient Education Materials: Low Back Strain (ED), Back Pain (ED), Lower Back Exercises (ED) Forms: *Work Release Referrals: Dayday Rice MD [Primary Care Provider] - If Needed - Billing Disposition and Condition Condition: STABLE Disposition: Home
== END 2019-09-08 09:54 | disposition home or self-care (01) ==
LOC: UCCORT 08:26
DX: M54.5 Low back pain (principal); F17.210 Nicotine dependence, cigarettes, uncomplicated
CPT/HCPCS: 99212; G0463